=== PATIENT | male | born 1990 | race Caucasian/White ===

== ENCOUNTER 2021-04-14 18:34 | Emergency (ER) | payer BC ==
[~2021-04-14] VITALS: Ht 180.3 cm; Wt 88.5 kg
[2021-04-14] MEDS ORDERED: HORIZANT300 MG PO (18:51)
[2021-04-14] MEDS ORDERED: B COMPLEX1 EACH (18:52)
== END 2021-04-14 19:32 | disposition home or self-care (01) ==
LOC: ER 18:34
DX: S30.812A Abrasion of penis, initial encounter (principal); X58.XXXA Exposure to other specified factors, initial encounter; Y93.89 Activity, other specified; Y92.89 Other specified places as the place of occurrence of the external cause; Y99.8 Other external cause status